=== PATIENT | male | born 1955 | race Caucasian/White ===

== ENCOUNTER 2020-06-09 14:06 | Outpatient (REF) | payer MEDICAID, SELFPAY ==
--- NOTE | ~2020-06-09 | XR_ITS ---
EXAMINATION: XR CHEST CLINICAL INFORMATION: Nonspecific reaction to gamma intrfrn COMPARISON: Chest radiographs 08/22/2017 TECHNIQUE: 2 views of the chest were obtained. FINDINGS: The lungs are clear. There is no airspace consolidation or groundglass opacity or effusion. The heart is normal in size and the hilar and mediastinal contours are normal. Bony structures are unremarkable. XR/XR chest 2V IMPRESSION: Unremarkable examination.
== END 2020-06-09 14:07 | disposition home or self-care (01) ==
LOC: HO.XRAY 14:06
PROVIDERS: PCP Internal Medicine Geriatric Medicine; Visit Provider Emergency Medicine
DX: R76.12 Nonspecific reaction to cell mediated immunity measurement of gamma interferon antigen response without active tuberculosis (principal)
CPT/HCPCS: 71046

== ENCOUNTER 2020-06-15 13:46 | Outpatient (REF) | payer MEDICAID, SELFPAY ==
--- NOTE | ~2020-06-15 | XR_ITS ---
EXAMINATION: XR CHEST CLINICAL INFORMATION: Active TB COMPARISON: Previous chest x-rays most recent 06/09/2020 TECHNIQUE: 2 views of the chest were obtained. FINDINGS: The cardiac and mediastinal contours are stable. The lungs are clear. There is no pleural effusion or pneumothorax. Bony structures are unremarkable. XR/XR chest 2V IMPRESSION: Unremarkable examination.
== END 2020-06-15 13:47 | disposition home or self-care (01) ==
LOC: HO.XRAY 13:46
PROVIDERS: PCP Internal Medicine Geriatric Medicine; Visit Provider Emergency Medicine
DX: R76.12 Nonspecific reaction to cell mediated immunity measurement of gamma interferon antigen response without active tuberculosis (principal)
CPT/HCPCS: 71046

== ENCOUNTER 2022-12-26 15:31 | Emergency (ER) | payer OTHER, SELFPAY ==
--- NOTE | ~2022-12-26 | CT_ITS ---
EXAMINATION: CT ANGIOGRAM HEAD CT ANGIOGRAM NECK CLINICAL INFORMATION: Reason for Exam ?blocked neck arteries. neck pain, dizzy COMPARISON: None. TECHNIQUE: Test bolus sequences followed by intravenous administration 70 mL of Omnipaque 350. Helical imaging was performed in the axial plane from the aortic arch to the skull vertex. Delayed postcontrast imaging of the head was also performed. The data was processed at the [employer] special [employer] technologist's workstation for generation of MIP sequences. Angled MIPs and volume rendered reformatted images were also generated at an offline 3D workstation. Stenoses are assessed in accordance with Maria et al. Quantification of Carotid Stenosis on CT Angiography. AJR 2006. 27(1):13-19. [address] CT examination was performed using dose optimization techniques as appropriate, variously including the following: *Automated exposure control *Adjustment of mA and/or kV according to patient size (this includes techniques or standardized protocols for targeted exams where dose is matched to indication/reason for exam; i.e. extremities or head) *Use of iterative reconstruction technique DLP: 2165.45 mGy-cm FINDINGS: CT HEAD: The ventricles and sulci are normal in size and configuration without significant volume loss or hydrocephalus. There is no abnormal attenuation within the brain parenchyma. No territorial loss of weeks-white differentiation. No acute intracranial hemorrhage or extra-axial fluid collection. No mass lesion, significant mass effect, or herniation pattern. No pathologic intra-axial enhancement or regional oligemia. Lens extractions. Air-fluid levels within the right greater than left frontal sinuses, patchy opacification throughout the ethmoid air cells and mucosal disease with air-fluid levels in the bilateral maxillary sinuses. Trace right mastoid effusion. Osseous structures are intact. CTA HEAD: Significant venous contamination is noted. No hemodynamically significant stenosis or occlusion in the anterior or posterior circulation. Mild calcific atherosclerosis of the carotid siphons without significant stenosis. 2 mm infundibulum versus aneurysm arising from the terminal left ICA at the left posterior communicating artery origin. No aneurysms and no high flow vascular malformations. Timing of the contrast bolus allows assessment of the major dural venous sinuses, which all opacify normally CTA NECK: Suboptimal contrast bolus timing. Two vessel branching pattern of the arch with left common carotid artery arising from the brachiocephalic trunk. Mild atherosclerotic disease of the aortic arch and left subclavian artery origin. Origins of the great vessels are widely patent. The common carotid arteries are widely patent. Is atherosclerotic disease of the carotid bifurcations without associated stenosis. The internal carotid arteries are widely patent. The left vertebral artery is dominant. The vertebral artery ostia are widely patent. Both vertebral arteries are widely patent throughout their extracranial cervical course. CT NECK: Punctate bilateral intra-articular loose bodies within the temporomandibular joints. Punctate sialolith within the superficial lobe of the right parotid gland. Bilateral palatine and lingual tonsilloliths. Lobulated soft tissue along the base of tongue partially effacing the vallecula presumably lingual tonsillar tissue. 1.6 cm peripherally calcified heterogeneously enhancing right thyroid lobe nodule along the undersurface of the right strap musculature for which further evaluation with thyroid ultrasound is advised. Additional smaller left thyroid lobe nodule. Cervical spondylosis, including asymmetric advanced right C3-C4 facet arthropathy with subchondral cystic/erosive change and sclerosis, presumably degenerative/inflammatory in the absence of clinical concern for infection. Elongated and ossified stylohyoid processes/stylohyoid ligaments with resultant abutment along the ventral wall of the right facial artery and ventral wall of the left ECA, can be correlated clinically for signs of [place] syndrome. CT/CT angio head neck IMPRESSION: 1. No acute intracranial pathology. 2. No significant steno-occlusive disease in the head or neck. 3. 2 mm infundibulum versus aneurysm arising from the terminal left ICA at the left posterior communicating artery origin. 4. Elongated and ossified stylohyoid processes/stylohyoid ligaments with abutment along the ventral wall of the right facial artery and ventral wall of the left ECA, can be correlated clinically for signs of [place] syndrome. 5. 1.6 cm right thyroid lobe nodule for which further evaluation with thyroid ultrasound is advised. 6. Paranasal sinus mucosal disease with scattered air-fluid levels as above that can be correlated clinically for signs of acute sinusitis. 7. Cervical spondylosis, including asymmetric advanced right C3-C4 facet arthropathy with subchondral cystic/erosive change and sclerosis, presumably degenerative/inflammatory in the absence of clinical concern for infection.
[2022-12-26 16:04] VITALS: BP 147/72; PULSE 91; RESP 16; TEMP 36.8; O2SAT 97; BMI 27.3
--- NOTE | 2022-12-26 16:04 | ED_ITS ---
HPI - General Adult General Chief complaint: Neck Pain/Injury Stated complaint: headache, neck pain into chest Time Seen by Provider: 12/26/22 23:31 Source: patient Mode of arrival: ambulatory Limitations: no limitations History of Present Illness HPI narrative: Patient is a 67-year-old male who presents emergency department for evaluation of atraumatic right lateral neck pain for the past 5 days. Pain is made worse with movement of the neck. 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 He endorsed an episode of dizziness but this was last week in denies dizziness currently. Denies headache, vision changes, chest pain, shortness of breath, numbness or tingling of the extremities, weakness. Related Data Previous Rx's Medication Instructions Recorded cyclobenzaprine 7.5 mg tablet 7.5 mg PO TID PRN muscle spasm #14 12/27/22 tabs Allergies Allergy/AdvReac Type Severity Reaction Status Date / Time No Known Allergies Allergy Verified 12/26/22 16:09 [No Known Allergies*] Review of Systems 2 Review of Systems: Yes all other systems are reviewed and are negative [facility] Past Medical History Attestation statement: The following information was validated with the patient. Source: old records reviewed Social History Social History Alcohol intake: never Smoked in Last 30 Days: No Use of substances other than those prescribed or required for medical reasons: No Advance Directives: No Advance Directives Information Provided: Yes Physical Exam ED Vital Signs: Vital Signs - 24 hr 12/26/22 16:04 12/27/22 00:52 Temperature 98.2 F 98.6 F Pulse Rate 91 60 Respiratory Rate 16 16 Blood Pressure 147/72 H 126/64 Pulse Oximetry 97 Oxygen Delivery Method Room Air Room Air BMI result Body Mass Index 27.3 Appearance: Alert.?Oriented to person, place and time. No acute distress.?Normal affect. Eyes: Pupils equal, round and reactive to light.? ENT: Pharynx normal.?? Neck: Normal inspection.? Neck supple.??No midline cervical spine tenderness, step-offs, deformities. Palpable tenderness along the right sternocleidomastoid and trapezius muscle CVS: Heart sounds normal. Normal heart rate and rhythm.? Pulses normal.?? Respiratory: No respiratory distress.? Lung sounds clear to auscultation bilaterally?? Abdomen: Soft and non-tender. Normoactive bowel sounds. Skin: Skin warm and dry.? Normal skin color.? Extremities: No lower extremity edema. Neuro: Moves all extremities spontaneously. Sensation intact bilaterally. CN II- XII intact. No focal neuro deficits. Ambulates with normal steady gait. Course Course Course Narrative: RME: 67-year-old male with past medical history ?block neck arteries presenting to the ED complaining of right sided neck pain & dizziness x5 days. Pain worse w/he moves his head. denies recent injury/fall/trauma, visual changes. Takes ASA Labs, CTA neck ordered Full HPI, ROS and PE to be performed by primary ED provider. Reevaluation(s) Reevaluation #1: CT revealing no acute intracranial abnormality, no significant occlusive disease in the head or neck. There is a 2 mm infindibulum versus aneurysm causing from the terminal left ICA a left posterior communicating artery, elongated an ossified stylohyoid processes/ligaments with abutment along the right facial artery concerning for [place] syndrome, in addition to cervical spondylosis, C3-C4 facet arthropathy with gross of changes and sclerosis, likely consistent with degenerative/inflammatory changes as clinically there is no concern for infection. CT revealed incidental right thyroid nodule. Reviewed these findings with patient, advised outpatient follow-up with vascular r as well as primary care provider for possible referral for physical therapy and pain management with [place] syndrome. Reviewed worrisome signs and symptoms that would warrant re-evaluation in the emergency department. All questions answered. Stable for discharge. Time: 01:15 Medications Administered Discontinued Medications Generic Name Dose Route Start Last Admin Trade Name Freq PRN Reason Stop Dose Admin Iohexol 80 ml 12/27/22 00:01 12/27/22 00:02 Iohexol 350 Mg/Ml 100 Ml Infus..Btl IV 12/27/22 00:02 80 ml ONCE ONE Administration Medical Decision Making Medical Decision Making MDM Narrative: Patient is a 67-year-old male who presents emergency department for evaluation of atraumatic neck pain as per HPI. At the time of my examination he is overall well-appearing, nontoxic, afebrile. Has no focal neurological deficits nor midline cervical spine tenderness, step-offs, deformities. Clinically have a low suspicion for spinal infection, abscess, no meningismus, no signs of CVA, NIH stroke score 0. Has full AROM intact to the neck, but this does exacerbate pain. He has tenderness upon palpation of the muscles as per physical examination portion of the note. Reviewed labs obtained prior to my assumption of care, no leukocytosis, a normocytic anemia that does not need transfusion criteria, overall unremarkable BMP, aside from hyperglycemia but he is a known diabetic. At this time CT angio of the head and neck is pending. Differential Diagnosis Differential Diagnoses: The differential diagnosis associated with the presentation includes (As noted above) Lab Data MDM Lab Attestation statement: I reviewed the patient's lab results. (As noted above) 12/26/22 16:50 12/26/22 16:50 Labs: Lab Results 12/26/22 Range/Units 16:50 WBC 8.4 (4.8-10.8) X10*3/uL RBC 4.46 L (4.60-5.80) X10*6/uL Hgb 12.6 L (14.0-18.0) g/dl Hct 38.5 L (42.0-52.0) % MCV 86.3 (80.0-98.0) fL MCH 28.3 (27.0-33.0) pg MCHC 32.7 (31.0-36.0) g/dl RDW 12.7 (11.0-16.0) % Plt Count 202 (160-400) X10*3/uL MPV 10.0 (9.4-12.4) fL Immature Gran % (Auto) 0.4 (0.0-0.4) % Neut % (Auto) 64.9 (45-73) % Lymph % (Auto) 24.5 (20-40) % [place] % (Auto) 8.9 (2-11) % Eos % (Auto) 0.8 (0-4) % Baso % (Auto) 0.5 (0-2) % Lymph # (Auto) 2.1 (1.2-4.9) X10*3/uL [place] # (Auto) 0.8 (0.1-1.2) X10*3/uL Eos # (Auto) 0.1 (0.0-0.4) X10*3/uL Baso # (Auto) 0.0 (0.0-0.2) X10*3/uL Abs Immat Gran (auto) 0.03 (0.00-0.03) X10*3/uL Absolute Neuts (auto) 5.5 (2.0-8.3) x10*3/uL Absolute Nucleated RBC 0.000 (0.0-0.012) X10*3/uL Nucleated RBC % (auto) 0.0 (0.0-0.2) /100WBC PT 11.0 L (11.1-13.3) SEC INR 0.9 (0.9-1.1) Sodium 136 (135-145) mmol/L Potassium 4.2 (3.3-5.1) mmol/L Chloride 100 (96-108) mmol/L Carbon Dioxide 26 (22-29) mmol/L Anion Gap 14 (12-20) BUN 16 (9-16) mg/dL Creatinine 0.74 (0.5-1.4) mg/dL Estim Creat Clear Calc 99.5 Estimated GFR > 60 Random Glucose 212 H (60-115) mg/dL Calcium 9.3 (8.4-10.2) mg/dL Radiology Impression Discussion of test interpretation with radiology: I have reviewed the radiologist's reading. Radiologist Impression: CT/CT angio head neck IMPRESSION: 1. No acute intracranial pathology. 2. No significant steno-occlusive disease in the head or neck. 3. 2 mm infundibulum versus aneurysm arising from the terminal left ICA at the left posterior communicating artery origin. 4. Elongated and ossified stylohyoid processes/stylohyoid ligaments with abutment along the ventral wall of the right facial artery and ventral wall of the left ECA, can be correlated clinically for signs of [place] syndrome. 5. 1.6 cm right thyroid lobe nodule for which further evaluation with thyroid ultrasound is advised. 6. Paranasal sinus mucosal disease with scattered air-fluid levels as above that can be correlated clinically for signs of acute sinusitis. 7. Cervical spondylosis, including asymmetric advanced right C3-C4 facet arthropathy with subchondral cystic/erosive change and sclerosis, presumably degenerative/inflammatory in the absence of clinical concern for infection. External Record Review External record reviewed: Outpatient record Prescription Management I considered prescription management with: Pain Medication Chronic Conditions Patient?s care impacted by: Diabetes Discharge Plan Discharge Clinical Impression: Acute neck pain, Abnormal CT scan, cervical spine Patient Disposition: Home, Self-Care Instructions: Acute Neck Pain (ED) Additional Instructions: As discussed, on your CT scan it is concerning that there is a possible aneurysm of the left ICA, for the issue should contact the vascular doctor for further follow-up. I had provided the contact information for you. There was an incidental finding of a nodule in your right thyroid, this should be further followed up with your primary care provider, they will likely do an ultrasound for further evaluation. You can take Tylenol 500 mg, 2 tablets (1,000mg) every 4-6 hours as needed for pain, but not to exceed 3 doses daily (3,000mg).? I have sent a prescription for flexeril to your pharmacy for management of pain. This medication may make you drowsy, should not drive, drink alcohol, or work while taking this medication. Please be sure to rest over the next few days, you may also consider applying ice/heat, and gentle exercises to the neck. You may return back to emergency department any new or worsening symptoms or concerns. Prescriptions: New cyclobenzaprine 7.5 mg tablet 7.5 mg PO TID PRN (Reason: muscle spasm) Qty: 14 0RF Referrals: Alonzo Tran MD [Physician] - Name,MD Jose [Primary Care Provider] -
[2022-12-26 16:53] LABS: MANUAL DIFF FLAG NO
[2022-12-26 16:55] LABS: Basophils Percent Auto 0.5 % (0-2); Eosinophils Absolute Auto 0.1 X10*3/uL (0.0-0.4); Eosinophils Percent Auto 0.8 % (0-4); Hematocrit 38.5 % (42.0-52.0); Hemoglobin 12.6 g/dl (14.0-18.0); Imm Gran Abs Auto 0.03 X10*3/uL (0.00-0.03); Imm Gran Pct Auto 0.4 % (0.0-0.4); Lymphocytes Absolute Auto 2.1 X10*3/uL (1.2-4.9); Lymphocytes Percent Auto 24.5 % (20-40); Mean Corpuscular HGB Conc 32.7 g/dl (31.0-36.0); Mean Corpuscular Hemoglobin 28.3 pg (27.0-33.0); Mean Corpuscular Volume 86.3 fL (80.0-98.0); Monocytes Absolute Auto 0.8 X10*3/uL (0.1-1.2); Monocytes Percent Auto 8.9 % (2-11); Neutrophils Absolute Auto 5.5 x10*3/uL (2.0-8.3); Neutrophils Percent Auto 64.9 % (45-73); Platelet Count 202 X10*3/uL (160-400); Red Blood Count 4.46 X10*6/uL (4.60-5.80); Red Cell Distribution Width 12.7 % (11.0-16.0); White Blood Count 8.4 X10*3/uL (4.8-10.8)
[2022-12-26 17:01] LABS: INTERNATIONAL NORM RATIO 0.9 (0.9-1.1)
[2022-12-26 17:11] LABS: Anion Gap 14 (12-20); Blood Urea Nitrogen 16 mg/dL (9-16); Calcium 9.3 mg/dL (8.4-10.2); Carbon Dioxide 26 mmol/L (22-29); Chloride 100 mmol/L (96-108); Creatinine Clr Calc Pharmacy 99.5; Estimated Glomerular Filt Rate > 60; Glucose Random 212 mg/dL (60-115); Potassium 4.2 mmol/L (3.3-5.1); Sodium 136 mmol/L (135-145)
[2022-12-27] MEDS: iohexoL 350 MG/ML 100 ML INFUS..BTL 80 ML IV (00:02)
[2022-12-27 00:52] VITALS: BP 126/64; PULSE 60; RESP 16; TEMP 37
== END 2022-12-27 02:02 | disposition home or self-care (01) ==
PROVIDERS: Physician Assistant; Emergency Provider Emergency Medicine Emergency Medical Services; PCP Internal Medicine Geriatric Medicine
DX: M54.2 Cervicalgia (principal); R51.9 Headache, unspecified; R07.89 Other chest pain; Z79.899 Other long term (current) drug therapy
CPT/HCPCS: 36415; 70496; 70498; 80048; 85025; 85610; 99284; Q9967

== ENCOUNTER 2023-01-18 12:12 | Outpatient (REF) | payer OTHER, MEDICAID, SELFPAY ==
[2023-01-18 14:22] LABS: Creatinine Urine 166.42 mg/dL; Microalbum/Creatinine Ratio Ur 4.8 ug/mg cr (<30)
[2023-01-18 14:50] LABS: Cholesterol 151 mg/dL (<200); HDL Cholesterol 46 mg/dL (>40); LDL Cholesterol Calculated 91 mg/dL (<100); Triglycerides 70 mg/dL (<150)
== END 2023-01-18 12:13 | disposition home or self-care (01) ==
LOC: HO.HHCL 12:12
PROVIDERS: Visit Provider Internal Medicine Geriatric Medicine
DX: E78.00 Pure hypercholesterolemia, unspecified (principal); E11.42 Type 2 diabetes mellitus with diabetic polyneuropathy
CPT/HCPCS: 36415; 80061; 82043; 82570

== ENCOUNTER 2023-01-28 10:21 | Outpatient (REF) | payer OTHER, SELFPAY ==
--- NOTE | ~2023-01-28 | XR_ITS ---
EXAMINATION: XR CHEST CLINICAL INFORMATION: History of treated latent TB. COMPARISON: 06/15/2020 TECHNIQUE: 2 views of the chest were obtained. FINDINGS: The lungs are well expanded. No focal consolidation. No pleural effusion. Cardiac silhouette is unchanged. XR/XR chest 2V IMPRESSION: No acute abnormality.
== END 2023-01-28 10:22 | disposition home or self-care (01) ==
LOC: HO.HHCX 10:21
PROVIDERS: Visit Provider Internal Medicine Geriatric Medicine
DX: Z86.15 Personal history of latent tuberculosis infection (principal)
CPT/HCPCS: 71046

== ENCOUNTER 2023-05-07 07:12 | Outpatient (REF) | payer OTHER, SELFPAY ==
--- NOTE | ~2023-05-07 | MR_ITS ---
EXAMINATION: MR ANGIOGRAPHY BRAIN WITHOUT CONTRAST CLINICAL INFORMATION: 68-year-old with possible aneurysm arising from the left ICA noted on previous CT angiogram. COMPARISON: 12/26/2022 CT angiogram brain. TECHNIQUE: 3-D [id number] MR angiography of the intracranial circulation was done without IV contrast. FINDINGS: Redemonstrated is what appears to be a small, less than 1.5 mm P-comm infundibulum, grossly unchanged in appearance from the previous exam within the limitations of the comparison of different modalities. The remainder of the anterior circulation demonstrates normal caliber and configuration, with a normal appearance to the A2 segments bilaterally and anterior communicating artery with a normal appearance to the left A1 segment, with a relatively small right A1 segment, unchanged in appearance. The M1 segments, MCA bifurcations and M2 branches appear within normal limits. The left vertebral artery is dominant with a very small right vertebral artery, similar to previous CT angiogram. The basilar artery is patent and normal in caliber, with a normal appearance to the superior cerebellar and posterior cerebral arteries, which are patent and normal in caliber. There is a subtle infundibulum at the origin of the left superior cerebellar artery which is unchanged. No convincing evidence for saccular aneurysm. No evidence for high-flow vascular malformation. MR/MR angio head wo con IMPRESSION: 1. Small left P-comm infundibulum again noted, unchanged in appearance from previous CT angiogram. No convincing evidence for saccular aneurysm. 2. Small infundibulum at the origin of the left superior cerebellar artery, unchanged in appearance.
== END 2023-05-07 07:13 | disposition home or self-care (01) ==
LOC: HO.MRI 07:12
PROVIDERS: PCP Internal Medicine Geriatric Medicine; Visit Provider Internal Medicine Geriatric Medicine
DX: I67.1 Cerebral aneurysm, nonruptured (principal); L72.0 Epidermal cyst
CPT/HCPCS: 70544

== ENCOUNTER 2023-09-20 10:48 | Outpatient (REF) | payer OTHER, SELFPAY ==
[2023-09-20 13:30] LABS: Estimated Average Glucose 192 mg/dL; Hemoglobin A1c % 8.3 % (<6.0)
[2023-09-20 13:37] LABS: Anion Gap 11 (12-20); Blood Urea Nitrogen 25 mg/dL (9-16); Calcium 8.8 mg/dL (8.4-10.2); Carbon Dioxide 28 mmol/L (22-29); Chloride 105 mmol/L (96-108); Estimated Glomerular Filt Rate > 60; Glucose Random 159 mg/dL (60-115); Sodium 140 mmol/L (135-145)
[2023-09-20 14:25] LABS: Creatinine Urine 157.71 mg/dL
== END 2023-09-20 10:49 | disposition home or self-care (01) ==
LOC: HO.HHCL 10:48
PROVIDERS: Visit Provider Internal Medicine Geriatric Medicine
DX: E11.40 Type 2 diabetes mellitus with diabetic neuropathy, unspecified (principal); M54.50 Low back pain, unspecified
CPT/HCPCS: 36415; 80048; 82043; 82570; 83036

== ENCOUNTER 2024-02-11 14:21 | Outpatient (REF) | payer OTHER, SELFPAY ==
[2024-02-11 18:25] LABS: Alanine Aminotransferase 22 U/L (0-40); Albumin Level 3.9 g/dL (3.5-5.0); Alkaline Phosphatase 74 U/L (39-117); Aspartate Amino Transferase 24 U/L (5-37); Bilirubin Direct 0.3 mg/dL (0.0-0.5); Bilirubin Total 0.7 mg/dL (0.0-1.0); Total Protein 6.4 g/dL (6.5-8.0)
[2024-02-12 03:57] LABS: HIV AB/AG Nonreactive (Nonreactive); HIV Num 1 0.05 S/CO (0.00-0.99); ~HepC Num1 0.07 S/CO (0.00-0.79); ~Hepatitis C Antibody Nonreactive (Nonreactive)
== END 2024-02-11 14:22 | disposition home or self-care (01) ==
LOC: HO.HHCL 14:21
PROVIDERS: Visit Provider Emergency Medicine
DX: Z11.4 Encounter for screening for human immunodeficiency virus [HIV] (principal); F11.20 Opioid dependence, uncomplicated
CPT/HCPCS: 36415; 80076; 86803; 87389

== ENCOUNTER 2024-12-17 11:17 | Outpatient (REF) | payer OTHER, SELFPAY ==
[2024-12-17 14:16] LABS: Alanine Aminotransferase 11 U/L (0-40); Albumin Level 4.0 g/dL (3.5-5.0); Alkaline Phosphatase 78 U/L (39-117); Anion Gap 8 (12-20); Aspartate Amino Transferase 23 U/L (5-37); Blood Urea Nitrogen 18 mg/dL (9-16); Calcium 8.8 mg/dL (8.4-10.2); Carbon Dioxide 30 mmol/L (22-29); Chloride 107 mmol/L (96-108); Cholesterol 106 mg/dL (<200); Estimated Glomerular Filt Rate > 60; HDL Cholesterol 47 mg/dL (>40); Potassium 4.4 mmol/L (3.3-5.1); Sodium 141 mmol/L (135-145); Total Protein 6.1 g/dL (6.5-8.0); Triglycerides 54 mg/dL (<150)
[2024-12-17 14:22] LABS: Microalbum/Creatinine Ratio Ur 3.8 ug/mg cr (<30)
[2024-12-18 09:10] LABS: HIV Num 1 0.05 S/CO (0.00-0.99); ~HepC Num1 0.06 S/CO (0.00-0.79); ~Hepatitis C Antibody Nonreactive (Nonreactive)
== END 2024-12-17 11:18 | disposition home or self-care (01) ==
LOC: HO.HHCL 11:17
PROVIDERS: Emergency Medicine; PCP Internal Medicine Geriatric Medicine; Visit Provider Internal Medicine Geriatric Medicine
DX: E11.42 Type 2 diabetes mellitus with diabetic polyneuropathy (principal); F11.20 Opioid dependence, uncomplicated; Z11.4 Encounter for screening for human immunodeficiency virus [HIV]; Z11.59 Encounter for screening for other viral diseases
CPT/HCPCS: 36415; 80053; 80061; 82043; 82570; 86803; 87389